=== PATIENT | female | born 2000 | race Caucasian/White ===

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

== ENCOUNTER 2023-03-01 14:06 | Emergency (ER) | payer OTHER, SELFPAY ==
[2023-03-01 14:07] VITALS: BP 145/74; PULSE 76; RESP 18; TEMP 36.1; O2SAT 98; BMI 32.3
--- NOTE | 2023-03-01 14:20 | EDS_ITS ---
HPI History of Present Illness Chief Complaint: Allergic Reaction Detail of Chief Complaint: Allergic reaction to romario gummy bear Informant: patient Onset/Context/Timing Onset: Hours (Onset approximately 20 minutes ago) Context: Sudden Onset Timing: Continuous Quality: Scratchy throat, change in voice, rash and facial swelling patient was unaw Location: Facial upper respiratory and generalized to skin Current Severity: Moderate Maximum Severity: Moderate Worsened by: May go gummy bear Relieved by: Nothing Associated Symptoms Associated Symptoms: Per HPI Narrative Narrative: Patient is a 22-year-old female has history of allergy to mangoes. She had a gummy bear and was unaware that it had romario in it. She presents within 20 minutes of consuming the romario gummy bear. She not have an EpiPen. She was unaware that her lower lip is swelling. She complains of scratchy throat. Mother states her voice is different. She has facial swelling with rash and blotchy rash starting on her chest. Patient denies chest pain. Patient has shortness of breath. Patient denies nausea, vomit diarrhea. Patient has orthostatic symptoms. 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 Exercise-induced asthma Knee pain Home Medications meloxicam 15 mg tablet 15 mg PO DAILY left knee pain #21 tabs 08/04/20 [Rx Last Taken Unknown] epinephrine 0.3 mg/0.3 mL injection, auto-injector 0.3 mg (0.3 mL) IM Q4H PRN Allergic reaction/angioedema #2 ea 03/01/23 [Rx Last Taken Unknown] famotidine 20 mg tablet (Pepcid) 20 mg PO BID #8 tabs 03/01/23 [Rx Last Taken Unknown] prednisone 20 mg tablet 40 mg (2 x 20 mg) PO DAILY #8 TABLETS 03/01/23 [Rx Last Taken Unknown] Allergy/AdvReac Type Severity Reaction Status Date / Time romario Allergy Severe Anaphylaxis Verified 03/01/23 14:07 Family History Other Hypertension Surgical History History of tonsillectomy and adenoidectomy Social History Smoking Status: Never smoker alcohol intake: never ROS ROS ED Constitutional Constitutional ED: Denies chills or fever(s) Eyes Eyes: Denies blurry vision, change in vision or diplopia ENT ENT ED: Reports other Details: Per HPI narrative ; Denies ear pain, rhinorrhea or sore throat Cardiovascular Cardiovascular: Denies chest pain or palpitations Respiratory/Chest Respiratory/Chest: Denies cough, dyspnea or dyspnea on exertion Gastrointestinal Gastrointestinal: Denies abdominal pain, nausea or vomiting Genitourinary Genitourinary ED: Denies dysuria, hematuria or urinary frequency Musculoskeletal Musculoskeletal: Denies arthralgias or myalgias Integumentary Reports rash Neurologic Neurologic: Denies paresthesias or weakness Endocrine Endocrinology: Denies cold intolerance or heat intolerance Hematologic/Lymphatic Hematologic/Lymphatic: Reports systems reviewed and no addt'l complaints, except as documented Allergic/Immunologic Allergic/Immunologic ED: Reports other Details: Document in the HPI narrative ; Denies mouth swelling, tongue swelling or urticaria EXAM Physical Exam Const Vital Signs: 03/01/23 14:07 Temperature 96.9 F L Temperature Source Temporal Pulse Rate 76 Respiratory Rate 18 Blood Pressure 145/74 H Blood Pressure Mean 97 Pulse Ox 98 Oxygen Delivery Method Room Air Positive well nourished and well developed Constitutional Narrative: Swelling of the face and lower lip there is no swelling of the uvula or posterior pharynx. General Appearance ED: well developed and NAD; Negative for cyanotic, diaphoretic or pallor HEENT Reports moist mucous membranes HEENT Narrative: Ears normal. Nares patent. Eyes PERRL and EOMs intact bilaterally General Eye ED: Negative for pale conjunctiva or scleral icterus Neck no lymphadenopathy, supple and no JVD Neck Narrative: Trachea is midline. There is no. Chest Wall palpation of chest normal; Negative for inspection of chest normal Chest Narrative: Patient is noted to have a blotchy rash that became apparent as I was examining the patient. Resp normal respiratory effort and clear to auscultation bilaterally Cardio regular rate, regular rhythm, S1 normal heart sound, S2 normal heart sound and no murmurs GI normal to inspection, nondistended, normoactive bowel sounds, non-tender, non- distended and no masses; Negative for hepatosplenomegaly Back/Spine no CVA tenderness Extremity normal to inspection General Extremety ED: Negative for edema or tenderness General Extremity: Negative for edema Neuro oriented x3, CN's II-XII intact bilaterally and no sensory deficits noted Sensorium / Orientation: alert Psych mental status grossly normal Skin No no rashes or lesions noted, no wounds and skin turgor normal General Skin Exam: Negative for jaundice or pallor MDM MDM MDM Narrative Medical decision making narrative: Patient is having generalized allergic reaction with angioedema due to gummy romario. Patient has history of angioedema due to romario. We will treat with epi, Solu-Medrol, Benadryl and Pepcid. Patient will be observed 2 to 4 hours at minimum. She was placed on the monitor. IV was established. Patient was made NPO. Treatment and Re-Evaluation :: Patient was reassessed at 1615. Her rash and edema has resolved. Nurse did inform me that she declined the EpiPen. She was discharged with a prescription for EpiPen as well as H1 H2 gray. Discharge Plan Triage Chief Complaint: Allergic Reaction ED Provider: Roger Loja Dx/Rx/DC Orders Clinical Impression: Acute urticaria, Allergic angioedema due to ingested food Instructions: ED General Allergic Reactions Prescriptions: New famotidine [Pepcid] 20 mg tablet 20 mg PO BID Qty: 8 0RF prednisone 20 mg tablet 40 mg PO DAILY Qty: 8 0RF epinephrine 0.3 mg/0.3 mL auto-injector 0.3 mg IM Q4H PRN (Reason: Allergic reaction/angioedema) Qty: 2 0RF No Action meloxicam 15 mg tablet 15 mg PO DAILY Qty: 21 0RF Rx Instructions: Stop other NSAIDS - can take tylenol if needed Primary Care Provider: Fatimah Wilson CV/CVN CV TSC SYSTEM OPERATOR Referrals: Stephanie Corona MD [Non-Staff] - As Needed Disposition Disposition: Home, Self Care
[2023-03-01] MEDS: DiphenhydrAMINE 50 MG/ML Syringe 25 MG IV (14:31)
[2023-03-01] MEDS: Epi Pen (EQUIV) 0.3 MG Syringe IM (14:31)
[2023-03-01] MEDS: MethylPREDNISolone 125 MG/2 ML Vial IV (14:31)
[2023-03-01] MEDS: Famotidine 200 MG/20 ML MDV 20 MG in 0.9% Normal Saline (Pres. free 8 ML 300 MG IV (14:45)
[2023-03-01 16:27] VITALS: BP 127/69; PULSE 72; RESP 15; O2SAT 98
== END 2023-03-01 16:29 | disposition home or self-care (01) ==
PROVIDERS: Emergency Provider Emergency Medicine; PCP Nurse Practitioner Family; Visit Provider Emergency Medicine
DX: T78.3XXA Angioneurotic edema, initial encounter (principal); X58.XXXA Exposure to other specified factors, initial encounter
CPT/HCPCS: 96372; 96374; 96375; 99282; A4216; J3490